=== PATIENT | female | born 1990 | race Caucasian/White ===

== ENCOUNTER 2018-03-21 19:35 | Emergency (ER) | payer BC, MEDICAID ==
[2018-03-21] MEDS ORDERED: HYDROCODONE/ACETAMINOPHEN 5-325 MG (6 TAB/ER DISP) PO PRN (20:49)
[2018-03-21] MEDS ORDERED: SULFAMETHOXAZOLE/TRIMETHOPRIM 800-160 MG TABLET PO ONE (20:49)
--- NOTE | 2018-03-21 21:29 | ER Document Report ---
HPI - HPI Patient complains to provider of: nose pain Time Seen by Provider: 03/21/18 20:42 Pain Level: 4 Context: Patient is a 27-year-old female that comes to the emergency department for chief complaint of pain and swelling to the left nasal area. She states she feels like she is intermittently swelling to her upper lip at times as well. This is been going on for 2 days or so. She states she has had this problem in the past, she has been able to pop it and drain it in the past herself but today it is worse. She denies fever chills, nausea or vomiting. She does not have diabetes. She has had several abscesses in the past. She is not on any current medications reportedly. LMP within the past month. - REPRODUCTIVE Reproductive: DENIES: : Past Medical History - General Information source: Patient - Social History Smoking Status: Never Smoker Frequency of alcohol use: Occasional Lives with: Family Family History: Reviewed & Not Pertinent Malignancy Medical History: Reports: Hx Cervical Cancer GI Medical History: Denies: Hx Gastritis, Hx Gastroesophageal Reflux Disease Psychiatric Medical History: Reports: Hx Anxiety, Hx Depression - anxiety - Immunizations Hx Diphtheria, Pertussis, Tetanus Vaccination: Yes - 2 years ago Vertical Provider Document - CONSTITUTIONAL General Appearance: WD/WN, No Apparent Distress - INFECTION CONTROL TRAVEL OUTSIDE OF THE [place] IN LAST 30 DAYS: No - HEENT HEENT: Atraumatic, Normocephalic. negative: Normal ENT Exam - The left nare has a fluctuant head over the lower medial aspect with some mild induration. Nasal exam is otherwise unremarkable. Lip exam is unremarkable. ENT exam including oral pharyngeal exam is unremarkable otherwise. - NECK Neck: Normal Inspection - RESPIRATORY Respiratory: Breath Sounds Normal, No Respiratory Distress - CARDIOVASCULAR Cardiovascular: Regular Rate, Regular Rhythm - GI/ABDOMEN Gastrointestinal: Abdomen Soft, Abdomen Non-Tender - BACK Back: Normal Inspection - NEURO Level of Consciousness: Awake, Alert, Appropriate - DERM Integumentary: Warm, Dry, No Rash Course - Re-evaluation Re-evalutation: Small abscess at the edge of the left nasal passage was opened with a needle, small amount of purulent drainage was expressed, patient will be placed on Bactrim. No concerning findings otherwise, no noted surrounding cellulitis. Discussed care, expectations, follow-up, and return precautions with patient in detail. Patient states understanding and agreement. - Vital Signs Vital signs: Temp Pulse Resp BP Pulse Ox 98.7 F 106 H 16 151/85 H 96 03/21/18 19:43 03/21/18 19:43 03/21/18 19:43 03/21/18 19:43 03/21/18 19:43 Procedures - Incision and Drainage Left nasal passage Type: Simple Incision Method: Incision made with needle Amount/type of drainage: Small amount of purulent drainage expressed, small amount of bleeding Discharge - Discharge Clinical Impression: Abscess Condition: Stable Disposition: HOME, SELF-CARE Additional Instructions: The abscess at the nose has been drained. This will continue to ooze and drain for the next couple of days most likely. You can clean the area with soap and water. Take antibiotic as prescribed. Follow-up with primary care. Return to the emergency department for any concerning or worsening symptoms including swelling, spreading redness, fever, or any other concerning or worsening symptoms. Prescriptions: Sulfamethoxazole/Trimethoprim [Bactrim Ds Tablet] 1 each PO BID #14 tablet Referrals: FRANKLIN,NO [NO LOCAL MD] - Follow up as needed
[2018-03-21 21:39] VITALS: BP 129/84
== END 2018-03-21 22:03 | disposition home or self-care (01) ==
LOC: ER 19:35
DX: J34.0 Abscess, furuncle and carbuncle of nose (principal); Z85.41 Personal history of malignant neoplasm of cervix uteri
CPT/HCPCS: 99283; 10060; J3490

== ENCOUNTER 2018-12-22 18:22 | Emergency (ER) | payer MEDICAID ==
[2018-12-22] MEDS ORDERED: ACETAMINOPHEN 325 MG TABLET PO ONE (19:09)
[2018-12-22 20:02] LABS: ABSOLUTE BASOPHILS # (AUTO) 0.1 10^3/uL (0.0-0.2); ABSOLUTE EOSINOPHILS # (AUTO) 0.1 10^3/uL (0.0-0.6); ABSOLUTE MONOCYTES (AUTO) 0.5 10^3/uL (0.1-1.4); ABSOLUTE NEUT (AUTO) 8.1 10^3/uL (1.7-8.2); BASOPHILS % (AUTO) 0.5 % (0-2); EOSINOPHILS % (AUTO) 1.2 % (0-6); HEMATOCRIT 44.1 % (36.0-47.0); HEMOGLOBIN 14.8 g/dL (12.0-15.5); LYMPHOCYTES % (AUTO) 18.7 % (13-45); MEAN CORPUSCULAR HEMOGLOBIN 27.7 pg (27.0-33.4); MEAN CORPUSCULAR HGB CONC 33.4 g/dL (32.0-36.0); MEAN CORPUSCULAR VOLUME 83 fl (80-97); MONOCYTES % (AUTO) 4.8 % (3-13); PLATELET COUNT 235 10^3/uL (150-450); RED BLOOD COUNT 5.33 10^6/uL (3.72-5.28); RED CELL DISTRIBUTION WIDTH 12.9 % (11.5-14.0); SEGMENTED NEUTROPHILS % (AUTO) 74.8 % (42-78); TOTAL CELLS COUNTED % (AUTO) 100 %; WHITE BLOOD COUNT 10.8 10^3/uL (4.0-10.5)
[2018-12-22 20:26] LABS: ALBUMIN 4.5 g/dL (3.5-5.0); ALKALINE PHOSPHATASE 121 U/L (38-126); ANION GAP 8 (5-19); ASPARTATE AMINO TRANSFERASE 25 U/L (14-36); BILIRUBIN,DIRECT 0.1 mg/dL (0.0-0.4); BILIRUBIN,TOTAL 0.2 mg/dL (0.2-1.3); BLOOD UREA NITROGEN 8 mg/dL (7-20); CALCIUM 9.7 mg/dL (8.4-10.2); CARBON DIOXIDE 27 mmol/L (22-30); CHLORIDE 104 mmol/L (98-107); GLUCOSE 97 mg/dL (75-110); POTASSIUM 4.5 mmol/L (3.6-5.0); TOTAL PROTEIN 7.7 g/dL (6.3-8.2)
--- NOTE | 2018-12-22 21:37 | RADIOLOGY REPORT (SQ) ---
EXAM DESCRIPTION: CT MAXILLOFACIAL WITH IV CONTRAST COMPLETED DATE/TME: 12/22/2018 19:12 CLINICAL HISTORY: 28 years, Female, facial cellulitis COMPARISON: None. TECHNIQUE: Contrast enhanced CT of the face was performed. Coronal and sagittal reformations were created. Images stored on PACS. All CT scanners at this facility use dose modulation, iterative reconstruction, and/or weight based dosing when appropriate to reduce radiation dose to as low as reasonably achievable (ALARA). [facility]: Dose Right [facility]: CareDose [facility]: Dose Right [facility]: Teradose 4D [facility]: [employer] LIMITATIONS: None. FINDINGS: Mandible is intact. Medial and lateral pterygoid plates are intact. The zygomatic arches are intact. Nasal bone is intact. Nasal septum is mildly deviated towards the right. Paranasal sinuses and visualized mastoid air cells are overall clear. Visualized portions of the thyroid gland appear symmetric. The hypopharynx, oropharynx, and nasopharynx show no suspicious abnormality. Left globe/orbit appears normal. There is moderate right preseptal soft tissue swelling extending superiorly into the right frontal scalp as well as inferiorly into the premaxillary soft tissues. An area of amorphous fluid density is noted about the preseptal soft tissues on image 51 of series 3 though no well-demarcated fluid collection is clearly identified. Likewise, there is no evidence of inflammation about the post septal or intracoronal soft tissues. Limited evaluation of the brain parenchyma reveals no suspicious finding. IMPRESSION: Findings are compatible with right preseptal cellulitis with extension of inflammation into the right frontal scalp as well as into the premaxillary soft tissues. No well-demarcated fluid collection is clearly identified. Amorphous fluid density about the preseptal region most likely corresponds to phlegmon. TECHNICAL DOCUMENTATION: Quality ID # [id number]: Final reports with documentation of one or more dose reduction techniques (e.g., Automated exposure control, adjustment of the mA and/or kV according to patient size, use of iterative reconstruction technique) copyright 2011 [employer]- All Rights Reserved
--- NOTE | 2018-12-22 22:34 | ER Document Report ---
ED Eye Complaint - General Chief Complaint: Eye Pain Stated Complaint: EYE PAIN Time Seen by Provider: 12/22/18 22:33 Mode of Arrival: Ambulatory Information source: Patient Notes: HISTORY OF PRESENT ILLNESS: Patient is a 28-year-old female with no significant past medical history who presents with pain and swelling over the right eye that began 3 days ago and worsened today prior to arrival. Patient reports she has had similar symptoms before, has had multiple places "lanced" but this is the first time it is been on her face. Location: Right eyebrow/forehead Onset: 3 days ago Provocation: Movement Quality: Aching, pressure Radiation: None Severity: Moderate at worst Timing: Constant Associated symptoms: Denies fevers or chills, no vision changes, no headaches REVIEW OF SYSTEMS: CONSTITUTIONAL : Denies fever or chills, no sweats. Denies recent illness. EENT: Positive for right eyebrow and forehead swelling and tenderness. Denies eye, ear, throat, or mouth pain or symptoms. Denies nasal or sinus congestion. CARDIOVASCULAR: Denies chest pain. RESPIRATORY: Denies cough, cold, or chest congestion. Denies shortness of breath, difficulty breathing, or wheezing. GASTROINTESTINAL: Denies abdominal pain. Denies nausea, vomiting, or diarrhea. Denies constipation. GENITOURINARY: Denies difficulty urinating, painful urination, burning, frequency, or blood in urine. Denies vaginal bleeding, abnormal or irregular periods. MUSCULOSKELETAL: Denies neck or back pain or joint pain or swelling. SKIN: Denies rash or skin lesions. HEMATOLOGIC : Denies easy bruising or bleeding. LYMPHATIC: Denies swollen, enlarged glands. NEUROLOGICAL: Denies altered mental status or loss of consciousness. Denies headache. Denies weakness or paralysis or loss of use of either side. Denies problems with gait or speech. Denies sensory or motor loss. PSYCHIATRIC: Denies anxiety or stress or depression. All other systems reviewed and negative. PHYSICAL EXAMINATION: GENERAL: Well-appearing, well-nourished and in no acute distress. HEAD: Atraumatic, normocephalic. No scalp deformity, depression, or crepitance. EYES: Pupils are 3 mm and equal/round/reactive to light, extraocular movements intact, sclera anicteric, conjunctiva are normal. ENT: 2.5 to 3 cm area of induration on the right eyebrow, does not involve the superior or inferior eyelids, no involvement of the face. Nares patent bilaterally, oropharynx clear without exudates or palatal petechia. Moist mucous membranes. No tonsil hypertrophy. NECK: Normal range of motion, supple without lymphadenopathy. LUNGS: Breath sounds present, equal, and clear to auscultation bilaterally. No wheezes, rales, or rhonchi. HEART: Regular rate and rhythm without murmurs, rubs, or gallops. 2+ peripheral pulses. Normal capillary refill. ABDOMEN: Soft, nontender, nondistended. Normoactive bowel sounds. No guarding, no rebound. No masses appreciated. BACK: Normal contour, no midline tenderness. Rectal exam deferred. PELVC: Deferred. EXTREMITIES: Normal range of motion, no pitting or edema. No cyanosis. NEUROLOGICAL: No focal neurological deficits. Moves all extremities spontaneously and on command. PSYCH: Normal mood, normal affect. No suicidal thoughts/ideations. No homicidal thoughts/ideations. No hallucinations. SKIN: Warm, dry, normal turgor, no rashes or lesions noted. ASSESSMENT AND PLAN: This patient is a 28-year-old female who presents with likely cellulitis to the right forehead and eyebrow, possibly early developing abscess however nothing currently appears to require drainage or incision. 1. Will give oral doxycycline and reassess. 2. Will discharge with improved. TRAVEL OUTSIDE OF THE [place] IN LAST 30 DAYS: No - HPI Onset: Other - 3 days Eye location: Right Injury: No Quality of pain: Achy Severity: Mild Pain Level: 1 Contact lenses worn: No Associated symptoms: Burning, Redness - Related Data Allergies/Adverse Reactions: No Known Allergies Allergy (Verified 07/18/13 18:59) Past Medical History - General Information source: Patient - Social History Smoking Status: Current Every Day Smoker Chew tobacco use (# tins/day): No Frequency of alcohol use: None Drug Abuse: None Lives with: Family Family History: Reviewed & Not Pertinent Patient has suicidal ideation: No Patient has homicidal ideation: No - Past Medical History Cardiac Medical History: Reports: None Pulmonary Medical History: Reports: None EENT Medical History: Reports: None Neurological Medical History: Reports: None Endocrine Medical History: Reports: None Renal/ Medical History: Reports: None. Denies: Hx Peritoneal Dialysis Malignancy Medical History: Reports: Hx Cervical Cancer GI Medical History: Reports: None. Denies: Hx Gastritis, Hx Gastroesophageal Reflux Disease Musculoskeletal Medical History: Reports None Skin Medical History: Reports None Psychiatric Medical History: Reports: Hx Anxiety, Hx Depression - anxiety Traumatic Medical History: Reports: None Infectious Medical History: Reports: None Surgical Hx: Negative Past Surgical History: Reports: None - Immunizations Hx Diphtheria, Pertussis, Tetanus Vaccination: Yes - 2 years ago Review of Systems - Review of Systems Constitutional: No symptoms reported EENT: See HPI, Eye pain Cardiovascular: No symptoms reported Respiratory: No symptoms reported Gastrointestinal: No symptoms reported Genitourinary: No symptoms reported Female Genitourinary: No symptoms reported Musculoskeletal: No symptoms reported Skin: No symptoms reported Hematologic/Lymphatic: No symptoms reported Neurological/Psychological: No symptoms reported -: Yes All other systems reviewed and negative Physical Exam - Vital signs Vitals: Temp Pulse Resp BP Pulse Ox 98.6 F 102 H 18 138/79 H 99 12/22/18 18:37 12/22/18 18:37 12/22/18 18:37 12/22/18 18:37 12/22/18 18:37 Interpretation: Normal Course - Re-evaluation Re-evalutation: 12/23/18 00:23 Will discharge the patient home with strict return precautions and follow-up with primary care. All results were explained to and discussed with the patient, and all questions addressed and answered. The patient voices both understanding and agreeing with the plan. - Vital Signs Vital signs: Temp Pulse Resp BP Pulse Ox 98.2 F 80 17 123/61 98 12/23/18 00:46 12/23/18 00:46 12/23/18 00:46 12/23/18 00:46 12/23/18 00:46 - Laboratory Result Diagrams: 12/22/18 19:46 12/22/18 19:46 Laboratory results interpreted by me: 12/22/18 19:46 WBC 10.8 H RBC 5.33 H Discharge - Discharge Clinical Impression: Cellulitis Qualifiers: Site of cellulitis: face Qualified Code(s): L03.211 - Cellulitis of face Condition: Good Disposition: HOME, SELF-CARE Instructions: MRSA Cellulitis ([facility]) Additional Instructions: You have been evaluated in the Emergency Department for pain and swelling around your right eye, most likely related to an infection. While here, you were given oral antibiotics and it is now safe to be discharged home. Please follow-up with your primary physician as instructed in one week to be rechecked. Return to the Emergency Department if you experience worsening pain, increased swelling, blurred vision, high fevers, or any other concerning symptoms. Prescriptions: Diclofenac Sodium 75 mg PO BID #30 tablet. Doxycycline Hyclate 100 mg PO BID #14 capsule Print Language: Lao
[2018-12-22] MEDS ORDERED: DOXYCYCLINE HYCLATE 100 MG TABLET PO ONE (23:16)
[2018-12-22] MEDS ORDERED: TRAMADOL HCL 50 MG TABLET PO ONE (23:16)
[2018-12-23 00:48] VITALS: BP 123/61
== END 2018-12-23 00:48 | disposition home or self-care (01) ==
LOC: ER 18:22
DX: L03.211 Cellulitis of face (principal); H57.11 Ocular pain, right eye; F17.200 Nicotine dependence, unspecified, uncomplicated
CPT/HCPCS: 36415; 84703; 85025; 80053; 70487; J3490 ×2; 99284